=== PATIENT | female | born 1985 | race Caucasian/White ===

== ENCOUNTER 2016-12-25 15:08 | Emergency (ER) | payer BC ==
[~2016-12-25] VITALS: Ht 165.1 cm; Wt 95.1 kg
[~2016-12-25 15:08] MED LIST: ADVAIR; ADVAIR 500/501 DISK IH; ALBUTEROL2.5 MG/0.5 IH; ENDOCET 5-3251 EACH PO; FLINTSTONES1 EACH PO; IBUPROFEN800 MG PO; MIDRIN1 CAPSULE PO; Motrin PO; PERCOCET 5/31 TABLET PO; PROAIR HFA8.5 GM; PROAIR HFA8.5 GM IH; PROMETHAZINE HC25 M1 PO; TYLENOL WITH C1 EACH PO; VENTOLIN HFA18 GM IH
[2016-12-25] MEDS ORDERED: TESSALON PERLE100 MG PO (16:39)
[2016-12-25 17:06] VITALS: BP 122/70
== END 2016-12-25 17:07 | disposition home or self-care (01) ==
LOC: EME 15:08
DX: J45.901 Unspecified asthma with (acute) exacerbation (principal); B34.9 Viral infection, unspecified
CPT/HCPCS: 71020; 94640; 99281; 99284; J1100